=== PATIENT | female | born 1985 | race Caucasian/White ===

== ENCOUNTER 2022-06-03 20:40 | Emergency (ER) | payer OTHER, SELFPAY ==
--- NOTE | 2022-06-03 20:37 | ECG_ITS ---
APPROVED REPORT Exam: Resting ECG HR:70 bpm ECG Measurements Heart Rate 70 AXES NH 140 P 48 QRSd 91 QRS 68 QT 376 T 58 QTc 396 Conclusion SINUS RHYTHM WITH SINUS ARRHYTHMIA POSSIBLE RIGHT VENTRICULAR CONDUCTION DELAY [RSR (QR) IN V1/V2] BORDERLINE ECG UNCONFIRMED REPORT Electronically signed by : Evaristo Zhu MD 06/04/2022 19:49:16
[2022-06-03 20:40] VITALS: BP 132/80; PULSE 76; RESP 18; TEMP 36.6; O2SAT 98; BMI 42.9
--- NOTE | 2022-06-03 21:11 | XR_ITS ---
PROCEDURE INFORMATION: Exam: XR Chest Exam date and time: 06/03/2022 9:17 PM Age: 36 years old Clinical indication: Pain; Chest pressure; Additional info: Chest tightness TECHNIQUE: Imaging protocol: Radiologic exam of the chest. Views: 2 views. COMPARISON: No relevant prior studies available. FINDINGS: Lungs: No consolidation. Pleural spaces: No pneumothorax. Heart/Mediastinum: No cardiomegaly. Bones/joints: No acute fracture. IMPRESSION: No acute findings.
[2022-06-03 21:17] LABS: Basophils # 0.1 K/mm3 (0-0.2); Eosinophils # 0.5 K/mm3 (0.0-0.4); Eosinophils % 3.5 % (0.1-12.0); Hematocrit 38.6 % (37.0-47.0); Hemoglobin 12.4 g/dL (12.2-16.2); Lymphocytes # 4.1 K/mm3 (0.7-4.5); Lymphocytes % 28.1 % (10-50); Mean Corpuscular HGB Conc 32.1 g/dL (31.8-35.4); Mean Corpuscular Hemoglobin 28.3 pg (27.0-31.2); Mean Platelet Volume 7.6 fl (7.4-10.4); Monocytes # 0.5 K/mm3 (0.1-1.0); Monocytes % 3.2 % (1.7-9.3); Neutrophils # 9.3 K/mm3 (1.8-7.8); Neutrophils % 64.2 % (37.0-80.0); Platelet Count 440 K/mm3 (142-424); Red Blood Count 4.39 M/mm3 (4.20-5.40); Red Cell Distribution Width 14.4 % (11.5-17.5); White Blood Count 14.5 K/mm3 (4.8-10.8)
[2022-06-03 21:21] LABS: Chloride 106 mmol/L (98-107); Potassium 3.8 mmoL/L (3.5-5.1); Sodium 137 mmol/L (136-145)
[2022-06-03 21:23] LABS: Blood Urea Nitrogen 16 mg/dl (7-17); Creatinine Clearance Estimated 86 mL/min (50-200); Estimated Glomerular Filt Rate 82 ml/min (>60); GFR (African American) 99 ML/MIN (>60)
[2022-06-03 21:24] LABS: Alanine Aminotransferase 21 U/L (12-78); Albumin Level 4.1 g/dl (3.5-5.0); Albumin/Globulin Ratio 1.2 (1.1-1.8); Alkaline Phosphatase 93 U/L (38-126); Anion Gap 12.8 mEq/L (5-15); Aspartate Amino Transferase 31 U/L (14-36); Bilirubin,Total 0.3 mg/dl (0.2-1.3); Calcium 8.9 mg/dl (8.4-10.2); Carbon Dioxide 22 mmol/L (22.0-30.0); Globulin 3.4 g/dL (1.3-3.2); Glucose 115 mg/dl (74-100); Total Protein,Serum 7.5 g/dl (6.3-8.2)
[2022-06-03 21:30] VITALS: BP 137/76; PULSE 65; RESP 17; O2SAT 96
[2022-06-03 21:38] LABS: Troponin I < 0.01 ng/ml (0.00-0.034)
--- NOTE | 2022-06-03 21:46 | CT_ITS ---
PROCEDURE INFORMATION: Exam: CT Abdomen And Pelvis With Contrast Exam date and time: 06/03/2022 10:48 PM Age: 36 years old Clinical indication: Abdominal pain; Additional info: Abd pain w epigastric TECHNIQUE: Imaging protocol: Computed tomography of the abdomen and pelvis with contrast. Radiation optimization: All CT scans at this facility use at least one of these dose optimization techniques: automated exposure control; mA and/or kV adjustment per patient size (includes targeted exams where dose is matched to clinical indication); or iterative reconstruction. Contrast material: ISOVUE; Contrast volume: 75 ml; Contrast route: IV; REPORTING DATA: Count of CT and Cardiac NM exams in prior 12 months: This patient has received 0 known CTs and 0 known cardiac nuclear medicine studies in the 12 months prior to the current study. COMPARISON: CR XR CHEST 2V 06/03/2022 9:17 PM FINDINGS: Liver: Normal. No mass. Gallbladder and bile ducts: Gallbladder is partially contracted containing 2 small calcified gallstones. No significant pericholecystic inflammation. Pancreas: Normal. No ductal dilation. Spleen: Normal. No splenomegaly. Adrenal glands: Normal. No mass. Kidneys and ureters: Normal. No hydronephrosis. Stomach and bowel: There is mild sigmoid diverticulosis. No bowel wall thickening or obstruction. Appendix: No evidence of appendicitis. Intraperitoneal space: Unremarkable. No free air. No significant fluid collection. Vasculature: Unremarkable. No abdominal aortic aneurysm. Lymph nodes: Unremarkable. No enlarged lymph nodes. Urinary bladder: Unremarkable as visualized. Reproductive: There is a 6 cm simple appearing right ovarian cyst. Pelvic organs are otherwise unremarkable. Bones/joints: Unremarkable. No acute fracture. Soft tissues: Unremarkable. IMPRESSION: 1. Cholelithiasis 2. 6 cm simple appearing right ovarian cyst. Ultrasound follow-up in 6-12 months is recommended. (Reference: Denis) References: Denis et al. Management of Incidental Adnexal Findings on CT and MRI: A White Paper of the ACR Incidental Findings Committee, J Am Júnior Radiol. 2019;17(2):248-254.
--- NOTE | 2022-06-03 21:47 | HMH.EDANX ---
Discharge Plan Disposition Chief Complaint: Chest Pain Clinical Impressions Clinical Impression: Atypical chest pain, Cholelithiasis, Ovarian cyst Instructions Patient Instructions: DI for Atypical Chest Pain, DI for Gallstones Discharge ED Provider: Daniel (ED)Jesu General Chief Complaint: Chest Pain Stated Complaint: chest pain Time Seen by Provider: 06/03/22 21:15 Mode of Arrival: Ambulatory Source of Information: Patient and Medical Record Limitations: No Limitations Description of Symptoms (Recalled from ER Triage Doc. by RN): 36 F presents with chest tightness related to an anxiety attack. Patient states it started this morning and has continued to get worse. She takes Buspirone TID PRN and has taken this twice today without relief. Patient is anxious, tearful, and fidgity on triage. History of Present Illness HPI narrative: new onset of lt sided chest pain which started last pm - no known hx of ht dis, has hx of gerd and anxiety and uses tob MD complaint: other (chest pain) Onset (ago): hour(s) Symptoms: chest pain Severity: moderate Quality: intermittent Place: home History of similar episodes: No Associated symptoms: denies other symptoms Related Data Allergies Allergy/AdvReac Type Severity Reaction Status Date / Time ciprofloxacin [From Cipro] Allergy Verified 06/03/22 21:08 Penicillins Allergy Verified 06/03/22 21:08 PFSH [facility] Disclaimer: The information contained in this section may have been updated after the patient was seen, as this information can be updated by other users. Social History Smoking Status: Current every day smoker alcohol intake: never current occupational status: employed Travel in the last 8 weeks: None ROS Obtained: Yes All systems reviewed & no additional complaints except as documented Physical Exam General General appearance: alert and obese Head Head exam: normocephalic Eye Eye exam: Present PERRL and EOMI ENT ENT exam: Present mucous membranes moist Neck Neck exam: Absent trachea midline Respiratory Respiratory exam: Present normal lung sounds bilaterally; Absent respiratory distress Cardiovascular Cardiovascular exam: Present regular rate; Absent systolic murmur or rubs Abdominal Exam Abdominal exam: Present soft and tenderness; Absent guarding or rebound Abdominal tenderness: Present epigastrium and mild Extremities Exam Extremities exam: Present full ROM; Absent calf tenderness Neurological Exam Neurological exam: Present alert, oriented X3 and CN II-XII intact; Absent motor sensory deficit Psychiatric Psychiatric exam: Present normal affect Skin Skin exam: Absent rash Medical Decision Making Medical Records Medical records reviewed: Yes I reviewed the patient's medical records. Leonardo Inquiry Pt receiving controlled substance: No Vital Signs: 06/03/22 20:40 06/03/22 21:30 06/03/22 22:00 Temperature 97.8 F Temperature Source Oral Pulse Rate 65 70 Pulse Rate [Left] 76 Respiratory Rate 18 17 14 Blood Pressure 137/76 154/83 H Blood Pressure [Right Arm] 132/80 Blood Pressure Mean [Right Arm] 97 Blood Pressure Source [Right Arm] Automatic Cuff Blood Pressure Position [Right Arm] Sitting 02 Sat by Pulse Oximetry 98 96 96 Oxygen Delivery Method Room Air 06/03/22 22:30 06/03/22 23:00 Temperature Temperature Source Pulse Rate 62 Pulse Rate [Left] Respiratory Rate 22 14 Blood Pressure 135/76 124/74 Blood Pressure [Right Arm] Blood Pressure Mean [Right Arm] Blood Pressure Source [Right Arm] Blood Pressure Position [Right Arm] 02 Sat by Pulse Oximetry 98 Oxygen Delivery Method Lab Data Lab results reviewed: Yes I reviewed the patient's lab results. Lab Results 06/03/22 20:38: WBC 14.5 H, RBC 4.39, Hgb 12.4, Hct 38.6, MCV 88.0, MCH 28.3, MCHC 32.1, RDW 14.4, Plt Count 440 H, MPV 7.6, Neut % (Auto) 64.2, Lymph % (Auto) 28.1, [place] % (Auto) 3.2, Eos % (Auto) 3.5, Baso % (
[2022-06-03 21:48] LABS: C-Reactive Protein 16.8 mg/L (0-4)
[2022-06-03 22:00] VITALS: BP 154/83; PULSE 70; RESP 14; O2SAT 96
[2022-06-03 22:00] LABS: Erythrocyte Sedimentation Rate 45 mm/hr (0-20)
[2022-06-03 22:02] LABS: Procalcitonin 0.032 ng/mL (0.0-2.0)
[2022-06-03 22:03] LABS: Amylase 83 U/L (30-110); Lipase 181 U/L (23-300)
[2022-06-03 22:07] LABS: HCG Qualitative, Serum Negative (Negative)
[2022-06-03 22:12] LABS: Microscopic, Urine URINE MICROSCOPIC (MICROSCOPIC)
[2022-06-03 22:19] LABS: Appearance,Urine CLEAR (Clear); Bilirubin,Urine Negative (Negative); Blood, Urine Negative (Negative); Color,Urine YELLOW (Yellow); Glucose,Urine (UA) Negative (Negative); Ketones,Urine Negative (Negative); Leukocyte Esterase,Urine Negative (Negative); Nitrate,Urine Negative (Negative); Protein,Urine Negative (Negative); Specific Gravity, Urine 1.025 (1.005-1.030); Urobilinogen,Urine 0.2 EU/dl (0.2)
[2022-06-03 22:30] VITALS: BP 135/76; PULSE 62; RESP 22; O2SAT 98
[2022-06-03 22:33] LABS: Amorphous Sediment,Urine Trace /lpf; Bacteria,Urine Trace /lpf; RBC,Urine Occasional #/hpf (0-3)
[2022-06-03 23:00] VITALS: BP 124/74; RESP 14
--- NOTE | 2022-06-03 23:49 | PC.NURSE ---
2ND TROP SENT TO LAB
[2022-06-04 00:28] LABS: Troponin I < 0.01 ng/ml (0.00-0.034)
[2022-06-04 00:31] VITALS: BP 145/83; PULSE 88; RESP 17; TEMP 36.8; O2SAT 97
== END 2022-06-04 00:35 | disposition home or self-care (01) ==
PROVIDERS: Emergency Provider Emergency Medicine; PCP Nurse Practitioner Family
DX: R07.9 Chest pain, unspecified (principal)
CPT/HCPCS: 71046; 74177; 80053; 81001; 82150; 83690; 84145; 84484; 84703; 85025; 85651; 86140; 93005; 96360; 96374; 96375; 99285; J2405; Q9967

== ENCOUNTER 2024-03-02 13:16 | Emergency (ER) | payer OTHER, SELFPAY ==
[2024-03-02 13:32] VITALS: BP 114/68; PULSE 89; RESP 14; TEMP 36.6; O2SAT 99; BMI 45.7
--- NOTE | 2024-03-02 13:33 | ECG_ITS ---
APPROVED REPORT Exam: Resting ECG HR:82 bpm ECG Measurements Heart Rate 82 AXES LA 149 P 25 QRSd 89 QRS 52 QT 357 T 37 QTc 395 Conclusion SINUS RHYTHM POSSIBLE RIGHT VENTRICULAR CONDUCTION DELAY [RSR (QR) IN V1/V2] BORDERLINE ECG UNCONFIRMED REPORT Electronically signed by : Tyron Sierra, 03/02/2024 15:32:05
--- NOTE | 2024-03-02 13:46 | XR_ITS ---
FINAL REPORT CLINICAL HISTORY: Shortness of breath FINDINGS: A single PA view of the chest was obtained. There is no prior exam for comparison. The cardiac and mediastinal silhouettes are within normal limits. The lungs are clear. There is no effusion or pneumothorax. IMPRESSION: No radiographic evidence of acute cardiac or pulmonary disease on this single view of the chest. Reviewed, Interpreted and Dictated by Aviva Moody MD Transcribed by Zeinab Das Authenticated and [facility]
--- NOTE | 2024-03-02 13:51 | HMH.EDGENADL ---
Discharge Plan Disposition Patient Disposition: Home, Self-Care Prescriptions Prescriptions: New cefdinir 300 mg capsule 300 mg PO BID 10 Days Qty: 20 0RF No Action duloxetine 60 mg capsule,delayed release(DR/EC) PO Patient Comments: TAKE ONE (1) CAPSULE BY MOUTH DAILY. Alyacen (28) 1-35 mg-mcg tablet 1 tab PO Patient Comments: TAKE ONE (1) TABLET EVERY DAY BY ORAL ROUTE FOR 28 DAYS. buspirone 10 mg tablet 10 mg PO Patient Comments: TAKE ONE (1) TABLET THREE (3) TIMES A DAY BY ORAL ROUTE NEEDED FOR 20 DAYS. pantoprazole 40 mg tablet,delayed release (DR/EC) PO Patient Comments: TAKE ONE (1) TABLET BY MOUTH TWICE DAILY FOR 90 DAYS. Referrals Follow up/Referrals: Nimesh Auguste PA [Primary Care Provider] - See instructions Clinical Impressions Clinical Impression: Preseptal cellulitis of right eye, Dyspnea, Atypical chest pain, Fatigue Print Language Print Language: [place] Discharge ED Provider: Hema Sierra General Adult HPI General Chief complaint: Shortness of Breath/Dyspnea Stated complaint: blurred vision, headache, tired Time Seen by Provider: 03/02/24 13:32 Mode of Arrival: Ambulatory Source of Information: Patient Limitations: No Limitations Description of Symptoms (Recalled from ER Triage Doc. by RN): pt states she has been sick x3d. pt c/o SOA, a nonproductive cough, fatigue, R sinus pressure, generalized FINE 9/10 that radiates to her neck, and L chest pressure. pt also reports blurred vision to the R eye. However, pt has been seen by an eye dr and specialist because this has been ongoing x1yr. pt states she has a constant shadow over her eye making it more difficult to see. pt reports the blurred vision is slightly worse today with her FINE. pt has a hx of migraines. Upon assessing pts vision with corrected lenses her R is 20/40 and her L is 20/25 pt reports a hx of anxiety and states she is very anxious at this time. History of Present Illness HPI narrative: Patient is a 38-year-old female who presents today with multiple complaints. She states that she has been very fatigued over the last 3 days also complains of right-sided facial pain and tenderness of her cheek and periorbital region. Also complains of chest pain has been ongoing for several days. Denies any fevers or chills but has had a chronic cough and some congestion. She also complains of significant anxiety. Related Data Home Medications ?Medication ?Instructions ?Recorded ?Confirmed buspirone 10 mg tablet 10 mg PO 06/08/22 06/08/22 duloxetine 60 mg capsule,delayed ea PO 06/08/22 06/08/22 release norethindrone 1 mg-ethinyl 1 tab PO 06/08/22 06/08/22 estradiol 35 mcg tablet (Alyacen) pantoprazole 40 mg tablet,delayed ea PO 06/08/22 06/08/22 release Previous Rx's ?Medication ?Instructions ?Recorded cefdinir 300 mg capsule 300 mg PO BID 10 days #20 caps 03/02/24 Allergies Allergy/AdvReac Type Severity Reaction Status Date / Time ciprofloxacin (From Cipro) Allergy Verified 06/08/22 09:52 Penicillins Allergy Verified 06/08/22 09:52 [facility] Disclaimer: The information contained in this section may have been updated after the patient was seen, as this information can be updated by other users. Social History (Updated 06/08/22 @ 09:53 by FERNANDA Page) Smoking Status: Never smoker alcohol intake: never current occupational status: employed Travel in the last 8 weeks: None Have you lived/traveled outside [place] in past 30 days?: No Contact w/someone who lives/traveled outside [place] past 30 days?: No Exposure to someone with infectious disease in past 14 days?: No Do you have a fever (greater than 100.4 F or 38 C)?: No Have you tested positive for COVID-19: No Exposed to someone with COVID-19 in past 14 days?: No Do you have a sore throat?: No Do you have a cough?: No Do you have any weakness?: Yes Do you have any diarrhea?: No Are you experiencing any unusual bleeding?: No Do you have any muscle aches/pain?: No Do you have any abdominal pain?: No Are you experiencing loss of taste or smell?: No ROS Obtained: Yes All systems reviewed & no additional complaints except as documented Physical Exam General General appearance: alert and in no apparent distress Head Head exam: other Eye Eye exam: Present other (Some erythema and tenderness over the right cheek and periorbital region of the right eye normal extraocular movements without significant pain no proptosis vision is normal bilaterally) Respiratory Respiratory exam: Present normal lung sounds bilaterally; Absent respiratory distress Cardiovascular Cardiovascular exam: Present regular rate and normal rhythm Abdominal Exam Abdominal exam: Present soft; Absent distention or tenderness Neurological Exam Neurological exam: Present alert, oriented X3, CN II-XII intact and normal gait; Absent motor sensory deficit Medical Decision Making Medical Records Screening: Per USPSTF and CDC recommendations, given the prevalence of disease in our region, it is our hospital?s policy to screen for HIV and viral Hepatitis for all patients aged 18 and over and those with ongoing risk factors. Leonardo Inquiry Pt receiving controlled substance: No Vital Signs: 03/02/24 13:32 Temperature 97.8 F Temperature Source Oral Pulse Rate [Left] 89 Respiratory Rate 14 Blood Pressure [Right Arm] 114/68 Blood Pressure Mean [Right Arm] 83 Blood Pressure Source [Right Arm] Automatic Cuff Blood Pressure Position [Right Arm] Sitting 02 Sat by Pulse Oximetry 99 Oxygen Delivery Method Room Air Lab Data Lab results reviewed: Yes I reviewed the patient's lab results. Lab Results 03/02/24 13:44: WBC 11.6 H, RBC 4.57, Hgb 13.0, Hct 39.1, MCV 85.6, MCH 28.4, MCHC 33.2, RDW 13.6, Plt Count 419, MPV 9.1, Neut % (Auto) 72.1, Lymph % (Auto) 21.9, [place] % (Auto) 2.7, Eos % (Auto) 2.2, Baso % (Auto) 0.8, Neut # (Auto) 8.4 H, Lymph # (Auto) 2.5, [place] # (Auto) 0.3, Eos # (Auto) 0.3, Baso # (Auto) 0.1, Sodium 132 L, Potassium 4.1, Chloride 102, Carbon Dioxide 21 L, Anion Gap 13.1, BUN 15, Creatinine 0.80, Estimated Creat Clear 77, Estimated GFR 81, Est GFR ( Amer) 98, Glucose 227 H, Calcium 9.5, Total Bilirubin 0.4, AST 34, ALT 31, Alkaline Phosphatase 96, Troponin I < 0.01, NT-Pro-B Natriuret Pep < 20.0, Total Protein 7.1, Albumin 4.3, Globulin 2.8, Albumin/Globulin Ratio 1.5, TSH 1.91 03/02/24 13:44 03/02/24 13:44 Orders (Tests/Meds): ED MEDICATIONS Discontinued Medications Generic Name Dose Route Start Last Admin Trade Name Perlita PRN Reason Stop Dose Admin Cefdinir 300 mg 03/02/24 13:50 03/02/24 13:55 Cefdinir 300mg Capsule PO 03/02/24 13:51 300 mg ONCE ONE Administration Sodium Chloride 1,000 mls @ 999 mls/hr 03/02/24 13:45 03/02/24 13:53 Sod Chlor 0.9% 1000ml Bag IV 03/02/24 14:45 999 mls/hr .Q1H1M DEDRA Administration ORDERS Category Date Time Status CXR --portable [XR chest portable] Stat Exams 03/02/24 13:46 Taken BNP [NT Pro Brain Natriuretic Pep.] Stat Lab 03/02/24 13:44 Completed CBC w/Auto Diff [Complete Blood Count Auto Diff] Stat Lab 03/02/24 13:44 Completed CMP [Comprehensive Metabolic Panel] Stat Lab 03/02/24 13:44 Completed HIV Combo Stat Lab 03/02/24 13:44 Received Hep C Ab with Reflex to RNA Stat Lab 03/02/24 13:44 Received Rapid PCR Covid and Flu A/B Stat Lab 03/02/24 13:50 Received TSH [Thyroid Stimulating Hormone] Stat Lab 03/02/24 13:44 Completed Trop I [Troponin I] Stat Lab 03/02/24 13:44 Completed Troponin I Q3H Lab 03/02/24 17:00 Ordered Troponin I Q3H Lab 03/02/24 20:00 Ordered Medical Decision Narrative: Patient with above history and physical very anxious on presentation with multiple complaints including some superficial erythema and swelling and tenderness over her right side of her face consistent with preseptal cellulitis. She has no clinical signs or symptoms of orbital involvement will not get a CT scan at the moment we will cover her with cefdinir as she has a penicillin allergy. She also complains of significant fatigue which could be from a infectious process or depression or anxiety or other metabolic abnormalities will get basic blood work. Also will swab her for COVID and flu as she has had some respiratory symptoms as well. Lastly she has some chest discomfort extremely unlikely to be cardiopulmonary emergency at the moment but will get basic workup regarding this to rule out emergent medical condition. She is PERC negative therefore D-dimer or further workup of pulmonary embolism is not indicated. Chest x-ray performed which I personally interpreted shows no cardiopulmonary emergency or abnormality labs otherwise unremarkable patient very well-appearing on reassessment. COVID and flu pending she does not have any risk factors to warrant antiviral therapy therefore will not wait for those results come back she can follow-up on this later. Cefdinir given in the emergency department and prescription sent to her pharmacy she was discharged in improved and stable condition. Critical Care Critical Care Time Critical Care Time: No
[2024-03-02] MEDS: 0.9 % SODIUM CHLORIDE 1000ML 1,000 ML 999 ML IV (13:53)
[2024-03-02] MEDS: CEFDINIR 300MG CAPSULE 300 MG PO (13:55)
[2024-03-02 13:56] LABS: Coronavirus 19, PCR Not Detected (NotDetected); Influenza A, PCR Not Detected (NotDetected); Influenza B, PCR Not Detected (NotDetected)
[2024-03-02 14:00] LABS: Basophils # 0.1 K/mm3 (0-0.2); Basophils % 0.8 % (0.1-2.0); Eosinophils # 0.3 K/mm3 (0.0-0.4); Eosinophils % 2.2 % (0.1-12.0); Hematocrit 39.1 % (37.0-47.0); Lymphocytes # 2.5 K/mm3 (0.7-4.5); Lymphocytes % 21.9 % (10-50); Mean Corpuscular HGB Conc 33.2 g/dL (31.8-35.4); Mean Corpuscular Hemoglobin 28.4 pg (27.0-31.2); Mean Corpuscular Volume 85.6 fl (81-99); Mean Platelet Volume 9.1 fl (7.4-10.4); Monocytes # 0.3 K/mm3 (0.1-1.0); Monocytes % 2.7 % (1.7-9.3); Neutrophils # 8.4 K/mm3 (1.8-7.8); Neutrophils % 72.1 % (37.0-80.0); Platelet Count 419 K/mm3 (142-424); Red Blood Count 4.57 M/mm3 (4.20-5.40); Red Cell Distribution Width 13.6 % (11.5-17.5); White Blood Count 11.6 K/mm3 (4.8-10.8)
[2024-03-02 14:04] LABS: Chloride 102 mmol/L (98-107)
[2024-03-02 14:05] LABS: Albumin Level 4.3 g/dl (3.5-5.0); Potassium 4.1 mmoL/L (3.5-5.1); Sodium 132 mmol/L (136-145)
[2024-03-02 14:07] LABS: Alanine Aminotransferase 31 U/L (12-78); Albumin/Globulin Ratio 1.5 (1.1-1.8); Alkaline Phosphatase 96 U/L (38-126); Anion Gap 13.1 mEq/L (5-15); Aspartate Amino Transferase 34 U/L (14-36); Bilirubin,Total 0.4 mg/dl (0.2-1.3); Blood Urea Nitrogen 15 mg/dl (7-17); Carbon Dioxide 21 mmol/L (22.0-30.0); Creatinine Clearance Estimated 77 mL/min (50-200); Estimated Glomerular Filt Rate 81 ml/min (>60); GFR (African American) 98 ML/MIN (>60); Globulin 2.8 g/dL (1.3-3.2); Total Protein,Serum 7.1 g/dl (6.3-8.2)
[2024-03-02 14:08] LABS: Calcium 9.5 mg/dl (8.4-10.2); Glucose 227 mg/dl (74-100)
[2024-03-02 14:18] LABS: NT Pro Brain Natriuretic Pep. < 20.0 pg/mL (0-125)
[2024-03-02 14:39] LABS: Thyroid Stimulating Hormone 1.91 uIU/mL (0.465-4.68)
[2024-03-02 14:40] LABS: Troponin I < 0.01 ng/ml (0.00-0.034)
[2024-03-02 15:04] LABS: HIV Combo NEGATIVE (Negative)
[2024-03-02 15:59] VITALS: BP 135/88; PULSE 69; RESP 19; TEMP 36.6
[2024-03-03 08:12] LABS: HCV Ab Non Reactive (Non Reactive)
== END 2024-03-02 16:01 | disposition home or self-care (01) ==
PROVIDERS: Emergency Provider Student in an Organized Health Care Education/Training Program; PCP Student in an Organized Health Care Education/Training Program
DX: L03.213 Periorbital cellulitis (principal); R06.00 Dyspnea, unspecified; R07.89 Other chest pain; R53.83 Other fatigue; R06.02 Shortness of breath; R05.9 Cough, unspecified; R51.9 Headache, unspecified; M54.2 Cervicalgia; H53.8 Other visual disturbances
CPT/HCPCS: 71045; 80050; 80053; 83880; 84443; 84484; 85025; 86803; 87389; 87636; 93005; 96360; 99284; J7030